=== PATIENT | male | born 1960 | race American Indian/Alaskan Native ===

== ENCOUNTER 2018-01-28 06:14 | Day surgery (SDC) | payer MEDICARE ==
[2018-01-28] MEDS ORDERED: ECOTRIN PO ONE (06:33)
[2018-01-28] MEDS ORDERED: NACL 0.9% 500 ML 500 ML IV SCH (07:00)
[2018-01-28 07:14] LABS: Basophils # (Auto) 0.1 K/mm3 (0.0-0.1); Basophils % (Auto) 0.7 % (0.0-1.8); Eosinophils # (Auto) 0.2 K/mm3 (0.0-0.4); Eosinophils % (Auto) 2.2 % (0.0-4.3); Hematocrit 42.2 % (35.5-45.6); Hemoglobin 13.8 gm/dl (11.8-15.2); Lymphocytes # (Auto) 2.3 K/mm3 (1.2-5.4); Lymphocytes % (Auto) 32.3 % (13.4-35.0); Mean Corpuscular HGB Conc 33 % (32-34); Mean Corpuscular Hemoglobin 30 pg (28-32); Mean Corpuscular Volume 92 fl (84-94); Monocytes # (Auto) 0.7 K/mm3 (0.0-0.8); Monocytes % (Auto) 10.4 % (0.0-7.3); Platelet Count 157 K/mm3 (140-440); Red Blood Count 4.59 M/mm3 (3.65-5.03); Red Cell Distribution Width 14.1 % (13.2-15.2)
[2018-01-28 07:24] LABS: INR 1.05 (0.87-1.13)
[2018-01-28] MEDS ORDERED: HEPARIN 10,000 UNITS/10 ML ONE (10:24)
[2018-01-28] MEDS ORDERED: XYLOCAINE 2% INFILTRATI ONE (10:24)
[2018-01-28] MEDS ORDERED: NITROGLYCERIN SYRINGE 3 ML ONE (10:24)
[2018-01-28] MEDS ORDERED: HEPARIN/NS 5000 UNIT/500ML(CATH LAB) 1,000 ML IR ONE (10:24)
[2018-01-28] MEDS ORDERED: CALAN ONE (10:24)
[2018-01-28] MEDS ORDERED: VERSED ONE (10:25)
[2018-01-28] MEDS ORDERED: SUBLIMAZE ONE (10:25)
--- NOTE | 2018-01-28 11:19 | Cardiac Catherization Report ---
CARDIAC CATHETERIZATION REFERRING PHYSICIAN: Jesse James MD INDICATION FOR PROCEDURE: The patient is a pleasant 57-year-old -[place] gentleman with multiple medical problems including severe dilated cardiomyopathy, abnormal stress test, chronic kidney disease, diabetes, hypertension, who presents here for cardiac catheterization due to severe dilated cardiomyopathy and abnormal PET stress test as well as episodes of heart failure. The patient's creatinine is noted to be in the high 1.7 range or so. Creatinine was 2.0 several weeks ago at Dr. Carbajal's office, 1.7 this morning. Discussed with Dr. Carbajal. Risks, benefits, alternatives discussed with the patient, risk of also discussed. The patient would like to proceed. PROCEDURE IN DETAIL: The patient was brought to the catheterization lab in a postabsorptive state, prepped and draped in a sterile fashion. Raymond's test in right hand was normal. A 2 mL of 2% lidocaine used to anesthetize the right wrist. A standard 6-Romansh hydrophilic sheath used to cannulate the right radial artery via modified Seldinger technique. All exchanges performed to exchange a J-tip guidewire. JL3.5 catheter used to engage the left main. No dampening or ventricularization. Cineangiography performed in all projections. JR4 catheter was used to cross the valve under fluoroscopic guidance. Left ventriculography performed in 30 STOKES and 30 HARLEY projections via hand injections, catheter flushed. Manual pullback performed with continuous pressure monitoring. Catheter was used to engage the right coronary. No dampening or ventricularization. Cineangiography performed in all projections. Catheter removed from body of the wire, sheath removed. Manual pressure used to achieve hemostasis. DATA: Aortic pressure is 140/70, LV pressure is 140. LVP of 20 mmHg. Left ventriculography reveals severe global left ventricular hypokinesis, estimated ejection fraction of 20-25%. No evidence of aortic stenosis, high normal LVEDP. CORONARY ANATOMY: Reveals a right dominant system. Right coronary is a moderate sized vessel, courses AV groove. No significant disease identified. Left main without significant disease, bifurcates left anterior descending and left circumflex. Left circumflex, moderate sized vessel, courses AV groove with no significant disease. LAD is a moderate sized vessel, courses anterior intergroove, wraps around the apex, no significant disease. I used a total of 24 mL of dye. Moderate sedation was directly supervised by myself with the administration of fentanyl and Versed from 10:40 a.m. to 10:58 a.m. The patient tolerated the procedure well. There were no complications. CONCLUSIONS: 1. No angiographic evidence of significant epicardial coronary disease in this right dominant system. 2. Severe globally dilated and hypokinetic left ventricle with systolic performance with estimated at 20-25%. 3. No evidence of aortic stenosis. 4. High normal LVEDP. The patient tolerated the procedure well. We will follow up with a BMP early next week discussed with Dr. Carbajal. Will have to see electrophysiology for possible defibrillator placement. No evidence of syncope, arrhythmias or palpitations. Continue current medications, which do include carvedilol 25 twice a day. He is on low dose Davian. We held that pre cath. We will continue this in 2 days. Results of procedure explained to the patient and family. All questions and concerns were addressed. JOB# [id number] SBChuck/SARAH
--- NOTE | 2018-01-28 11:40 | Short Stay Summary ---
Short Stay Documentation Date of service: 01/28/18 - History H&P: obtained from office - Allergies and Medications Current Medications: Allergies No Known Allergies Allergy (Verified 01/28/18 06:38) Home Medications Medication Instructions Recorded Confirmed Last Taken Type Carvedilol [Coreg] 12.5 mg PO BID 07/20/13 01/28/18 01/27/18 History Furosemide [Lasix] 40 mg PO DAILY 07/20/13 01/28/18 01/27/18 History Lisinopril/Hydrochlorothiazide 2 tab PO BID 07/20/13 01/28/18 01/27/18 History [Zestoretic 10-12.5 mg] Multivitamin [Multi-Vitamin Daily] 1 each PO DAILY 07/20/13 01/28/18 01/27/18 History Probenecid/Colchicine 0.6 mg PO DAILY 07/20/13 01/28/18 01/27/18 History [Probenecid-Colchicine Tab] hydrOXYzine HCL [Atarax] 10 mg PO TID 07/20/13 01/28/18 01/27/18 History HYDROcodone/APAP 5-325 [Morganza 1 each PO Q6H PRN #60 tablet 07/27/13 01/28/1802/08 23:15 Rx 5-325 mg TAB] Insulin Glulisine [Apidra] 25 units SUB-Q AC #30 units 07/27/13 01/28/18 Rx Active Medications Sodium Chloride (Nacl 0.9% 500 Ml) 500 mls @ 100 mls/hr IV DIRECT NATALIE Stop: 01/28/18 11:59 Last Admin: 01/28/18 07:23 Dose: 100 mls/hr - Brief post op/procedure progress note Date of procedure: 01/28/18 Pre-op diagnosis: dilated CMP Post-op diagnosis: same Procedure: C - see cath report Anesthesia: local Estimated blood loss: none Condition: stable - Disposition Condition at discharge: Stable - Discharge Diagnoses (1) Dilated cardiomyopathy Status: Chronic (2) CKD (chronic kidney disease) Status: Chronic (3) Hypertension Status: Chronic (4) Diabetes Status: Chronic Short Stay Discharge Plan Follow up with: SIM RODRIGUEZ MD [Other] - 7 Days
[2018-01-28 13:12] VITALS: BP 136/77
== END 2018-01-28 13:30 | disposition home or self-care (01) ==
LOC: CATHLABREC 06:14
PROVIDERS: ATTEND Internal Medicine
DX: I42.0 Dilated cardiomyopathy (principal); E11.22 Type 2 diabetes mellitus with diabetic chronic kidney disease; I13.0 Hypertensive heart and chronic kidney disease with heart failure and stage 1 through stage 4 chronic kidney disease, or unspecified chronic kidney disease; N18.4 Chronic kidney disease, stage 4 (severe); I50.9 Heart failure, unspecified; Z79.899 Other long term (current) drug therapy
CPT/HCPCS: 36415; 80048; 82962; 85025; 85610; 85730; 93005; 93010; 93458; C1894; J1644; J2250; J3010; J7040; Q9967